=== PATIENT | female | born 1965 | race Caucasian/White ===

== ENCOUNTER 2019-02-05 10:55 | Emergency (ER) | payer OTHER ==
[~2019-02-05] VITALS: Ht 152.4 cm; Wt 88.6 kg
[2019-02-05] MEDS ORDERED: METH10 PO (11:06)
[2019-02-05] MEDS ORDERED: LIDOCAINE/PF 2% 5 ML VIAL INJ ONE (12:30)
[2019-02-05] MEDS ORDERED: SULFAMETHOX/TRIMETH DS 800-160 MG/TABLET PO ONE (13:15)
[2019-02-05] MEDS ORDERED: KETOROLAC TROMETHAMINE 60 MG/2 ML VIAL IM ONE (13:15)
[2019-02-05] MEDS ORDERED: LIDOCAINE 1% 10 ML VIAL ONE (13:59)
[2019-02-05 14:18] VITALS: BP 121/79
== END 2019-02-05 14:46 | disposition home or self-care (01) ==
LOC: EMS 10:55
DX: L03.011 Cellulitis of right finger (principal); L02.511 Cutaneous abscess of right hand
CPT/HCPCS: 26010; 96372; 99283; J0690; J1885; J3490 ×2